=== PATIENT | female | born 1935 | race Caucasian/White ===

== ENCOUNTER → 2017-04-21 | Outpatient (CLI) | payer OTHER | LOC: BMCIMAGING 12:07 | PROVIDERS: ATTEND Internal Medicine | DX: Z12.31 Encounter for screening mammogram for malignant neoplasm of breast (principal); Z80.3 Family history of malignant neoplasm of breast | CPT/HCPCS: G0202 ==

== ENCOUNTER → 2017-04-21 | Outpatient (CLI) | payer OTHER | LOC: BMCIMAGING 12:18 | PROVIDERS: ATTEND Internal Medicine | DX: Z13.820 Encounter for screening for osteoporosis (principal); M85.80 Other specified disorders of bone density and structure, unspecified site ==

== ENCOUNTER → 2018-08-26 | Outpatient (CLI) | payer OTHER | LOC: BMCIMAGING 10:10 | PROVIDERS: ATTEND Internal Medicine | DX: N63.21 Unspecified lump in the left breast, upper outer quadrant (principal); R59.0 Localized enlarged lymph nodes ==

== ENCOUNTER → 2018-09-20 | Outpatient (CLI) | payer OTHER ==
[~2018-09-20] MED LIST: BUPIVACAINE 0.5% 30 ML SDV ONE; LIDOCAINE 1% 300 MG/30 ML SDV ONE
== END ==
LOC: FIMAGING 07:37
PROVIDERS: ATTEND Internal Medicine
PROC: 0HBU3ZX Excision of Left Breast, Percutaneous Approach, Diagnostic (ICD-10-PCS; principal; 2018-09-20)
DX: N63.20 Unspecified lump in the left breast, unspecified quadrant (principal); Z80.3 Family history of malignant neoplasm of breast; D05.12 Intraductal carcinoma in situ of left breast

== ENCOUNTER → 2018-10-07 | Outpatient (CLI) | payer OTHER ==
[~2018-10-07] MED LIST changes: -BUPIVACAINE 0.5% 30 ML SDV ONE; +GADOBUTROL 10 ML VIAL IVP ONE; -LIDOCAINE 1% 300 MG/30 ML SDV ONE
== END ==
LOC: FIMAGING 08:42
PROVIDERS: ATTEND Surgery
DX: C50.412 Malignant neoplasm of upper-outer quadrant of left female breast (principal)
CPT/HCPCS: A9585; C8908; 82565-PO

== ENCOUNTER 2018-10-14 07:54 | Observation (INO) | payer OTHER ==
[2018-10-14] MEDS ORDERED: BUPIVACAINE/EPI 0.25% 30 ML SDV ONE (08:09)
[2018-10-14] MEDS ORDERED: BUPIVACAINE 0.25% 30 ML SDV ONE (08:09)
[2018-10-14] MEDS ORDERED: ceFAZolin 2 GM/DEXTROSE 100 ML IV ONE (08:10)
[2018-10-14] MEDS ORDERED: LR 1,000 ML IV ONE (08:11)
[2018-10-14] MEDS ORDERED: LIDOCAINE 1% 2 ML INJ ID PRN (08:11)
--- NOTE | 2018-10-14 08:33 | PDANEPAE ---
ANE History of Present Illness 83 yo with breast ca ANE Past Medical History - Cardiovascular History Hx Hypertension: No Hx Arrhythmias: No Hx Chest Pain: No Hx Coronary Artery / Peripheral Vascular Disease: No Hx CHF / Valvular Disease: No Hx Palpitations: No - Pulmonary History Hx COPD: No Hx Asthma/Reactive Airway Disease: No Hx Recent Upper Respiratory Infection: Yes Hx Oxygen in Use at Home: No Hx Sleep Apnea: No Sleep Apnea Screening Result - Last Documented: Negative Pulmonary History Comment: 08/16/18 URI NO MEDICATIONS - Neurologic History Hx Cerebrovascular Accident: No Hx Seizures: No Hx Dementia: No - Endocrine History Hx Diabetes: No Endocrine History Comment: HYPOTHYROID - Renal History Hx Renal Disorders: No - Liver History Hx Hepatic Disorders: No - Neurological & Psychiatric Hx Hx Neurological and Psychiatric Disorders: No - Cancer History Hx Cancer: Yes Cancer History Comment: DISCOVERED LUMP 08/11/18 BREAST - Congenital Disorder History Hx Congenital Disorders: No - GI History Hx Gastrointestinal Disorders: No - Chronic Pain History Chronic Pain: No - Surgical History Prior Surgeries: DMITRIY CATARACT. D&C ANE Review of Systems Review of Systems: - Exercise capacity METS (RN): 4 METS ANE Patient History - Allergies Allergies/Adverse Reactions: guaifenesin Allergy (Verified 10/07/18 14:12) MEMORY LOSS - Home Medications Home Medications: Aspirin 81mg (*) DAILY 10/07/18 [Last Taken 10/07/18] Herbals/Supplements -Info Only DAILY 10/07/18 [Last Taken 10/07/18] Synthroid DAILY AT 6PM 10/07/18 [Last Taken 10/13/18 18:30] - Anes Hx Anes Hx: no prior problems - Smoking Hx Smoking Status: Never smoked ANE Labs/Vital Signs - Vital Signs Height: 165.1 cm Weight: 53.524 kg ANE Physical Exam - Airway Neck exam: FROM Mallampati Score: Class 1 Mouth exam: normal dental/mouth exam - Pulmonary Pulmonary: no respiratory distress - Cardiovascular Cardiovascular: regular rate and rhythym - ASA Status ASA Status: II ANE Anesthesia Plan Anesthesia Plan: GA w LMA
[2018-10-14] MEDS ORDERED: SCOPOLAMINE HYDROBROMIDE 1 MG/3 DAYS PATCH TD SCH (08:45)
[2018-10-14] MEDS ORDERED: PROPOFOL 200 MG/20 ML VIAL ONE ×2 (08:59→10:30)
[2018-10-14] MEDS ORDERED: fentaNYL 100 MCG/2 ML INJ ONE (08:59)
[2018-10-14] MEDS ORDERED: PROPOFOL/EMULSION 500 MG/50 ML BOTTLE IV ONE (08:59)
--- NOTE | 2018-10-14 09:07 | PDHPUP ---
History & Physical Update H&P update statement: This history and physical update is based on an assessment of the patient which was completed after admission or registration (within 24 hours), but prior to the surgery/procedure. H&P update: H&P reviewed & patient examined, no change in patient's condition since H&P completed
[2018-10-14] MEDS ORDERED: AVITENE POWDER 1 GM JAR TP ONE (10:00)
[2018-10-14] MEDS ORDERED: ONDANSETRON DISINTEGRATING 4 MG TAB PO PRN (10:52)
--- NOTE | 2018-10-14 10:52 | POSTOPPROG ---
Post Op Note Date of Operation: 10/14/18 Surgeon: Anthony Callaway (, FACS) Anesthesiologist: Rocky Moss MD Anesthesia: LMA Pre-op Diagnosis: left breast cancer Procedure: left partial mastectomy/ALND Inf/Abcess present in the surg proc area at time of surgery?: No EBL: 50-100 (50 ml) Bowel Protocol: N/A Clean Closure Performed: N/A Drains: Flex Holcomb Specimen(s): partial mastectomy left ALND additional thoraco-abdominal nodes highest axillary nodes
[2018-10-14] MEDS ORDERED: fentaNYL 100 MCG/2 ML INJ IVP PRN (11:01)
[2018-10-14] MEDS ORDERED: NALOXONE HCL 0.4 MG/ML INJ IVP PRN (11:01)
[2018-10-14] MEDS ORDERED: PROMETHAZINE HCL 25 MG/ML INJ IVP PRN (11:01)
[2018-10-14] MEDS ORDERED: ONDANSETRON 4 MG/2 ML VIAL IVP PRN (11:01)
[2018-10-14] MEDS ORDERED: DEXAMETHASONE 4 MG/ML VIAL IVP PRN (11:01)
--- NOTE | 2018-10-14 11:02 | POSTANESTH ---
Post Anesthetic Evaluation Cardiovascular Status: Normal, Stable Respiratory Status: Normal, Stable, Requires Airway Assist Pain Control: Adequate, Prn Tx Ordered Nausea/Vomiting Control: Adequate, Prn Tx Ordered Complications Possibly Related to Anesthesia: None Noted
[2018-10-14] MEDS ORDERED: ACETAMINOPHEN 325 MG TAB ONE (11:13)
[2018-10-14] MEDS: ACETAMINOPHEN 325 MG TAB PO PRN ×2 (11:13→17:04)
[2018-10-14] MEDS ORDERED: traMADol 50 MG TAB ONE (12:23)
[2018-10-14] MEDS: traMADol 50 MG TAB PO PRN ×2 (12:26→20:11)
[2018-10-15 07:30] VITALS: BP 90/56
[2018-10-15] MEDS ORDERED: ASPIRIN 81 MG CHEWABLE TAB PO SCH (09:00)
--- NOTE | 2018-10-15 09:56 | PDDCSUM ---
Discharge Summary Discharge Summary: #[id number] Barb Callaway MD, FACS
--- NOTE | 2018-10-15 10:31 | GDS ---
[f rep st] DISCHARGE SUMMARY DISCHARGE DIAGNOSIS: Left breast carcinoma, clinical stage T2 N2. PROCEDURE PERFORMED: 10/14/2018, left partial mastectomy and axillary lymph node dissection. HOSPITAL COURSE: For details of admission history and physical, please see dictated summary. Briefl y, the patient is an 83-year-old female with a locally advanced breast cancer, admitted for breast co nservation therapy and axillary lymph node dissection. This was performed on the day of admission un murtaza general anesthesia. She had an uneventful postoperative course with very little pain. She took 2 tramadol tablets following surgery. The day after surgery, she reported no pain. Her incisions we re healing well without sign of infection. Her Flex-Holcomb drainage was starting to clear. She wi ll be instructed in drain care and follow up in my office in the upcoming week for a postoperative ch ariella. Final pathology report is pending. She has followup appointments with Dr. Prashant Hernandez to dis cuss adjuvant treatment next week. DISCHARGE MEDICATIONS: Include levothyroxine 50 mcg p.o. daily, aspirin 81 mg p.o. daily, tramadol 5 0 mg q.4 hours p.r.n. pain, Ambien 5 mg q.h.s. p.r.n. insomnia, omega-3 fatty acids, glucosamine mala droitin sulfate, vitamin D3 1000 units per day. DISCHARGE CONDITION: Condition at time of discharge, satisfactory. /[id number]/MODL
--- NOTE | 2018-10-15 10:33 | ASDISCHSUM ---
Discharge Information Plan Status:Home with No Needs Medically Cleared to Leave:10/15/2018 Discharge Date:10/15/2018 CM D/C Disposition:Home, Routine, Self-Care ADT D/C Disposition: Projected Discharge Date:10/15/2018 Transportation at D/C:Family Discharge Delay Reason: Follow-Up Date:10/15/2018 Discharge Slot: Final Diagnosis: Placement Information Patient Contact Information Contact Name:YOLANDA Relationship: Address:[address] Work Phone: City:[facility] Phone: State/Zip Code:[place] [address] Email: Financial Information Financial Class:Medicare Advantage Plans Primary Plan Desc:[employer] MEDICARE ADV Primary Plan Number:[id number] Secondary Plan Desc: Secondary Plan Number: Assessment Information LACE LACE Length of stay for Answers: Less than 1 day current admission Acuity / Level of Answers: No Care: Did the patient have an inpatient admission? Comorbidities - select Answers: Any tumor (including all that apply lymphoma or leukemia) Other Notes: Hypothyroid # of Emergency department Answers: 0 visits in the last 6 months Score: 3 Date Signed: 10/15/2018 10:30 AM Electronically Signed By:CRISTOBAL Ott Case Management Discharge Plan Note Case Management Discharge Discharge Order Complete? Answers: Yes Patient to Obtain Answers: via Family Medications Transportation Arranged Answers: Family/Friends Discharge Comments Notes: Pt is s/p a planned L breast partial mastectomy and bx. She is discharging home today with her and no CM needs. Date Signed: 10/15/2018 10:32 AM Electronically Signed By:CRISTOBAL Ott Intervention Information
--- NOTE | 2018-10-15 12:26 | GOP ---
[f rep st] OPERATIVE REPORT DATE OF OPERATION: 10/14/2018 SURGEON: Anthony Callaway MD, FACS ANESTHESIA: General by laryngeal mask. ANESTHESIOLOGIST: Edwin Moss MD PREOPERATIVE DIAGNOSIS: Left breast carcinoma. POSTOPERATIVE DIAGNOSIS: Left breast carcinoma. PROCEDURE PERFORMED: Left partial mastectomy with axillary lymph node dissection. FINDINGS: Large tumor in the axillary tail of the breast, excised with overlying subcutaneous fat and underlying pectoralis muscle, submitted for permanent section after orientation with margin marker ink, separately designating the superior, inferior, medial, lateral, anterior, and posterior margins. The axillary contents (level 1) with additional thoracodorsal and highest axillary nodes submitted for permanent section. ESTIMATED BLOOD LOSS: 50 mL. DESCRIPTION OF PROCEDURE: After informed consent was obtained, the patient was brought to the operating room and placed under general anesthesia. The left breast was prepped and draped in usual fashion. Before proceeding, a time-out and identification of the patient was performed. Patient had a palpable mass in the axillary tail, as well as palpable axillary nodes. The lumpectomy was performed first as follows. An intercostal block was performed injecting 5 cc of 0.25% Marcaine into the 4th , 5th, 6th, and 7th intercostal spaces just below the rib and deep to the intercostal muscle. Following this, a curvilinear incision was made over the palpable tumor in the upper outer quadrant. Dissection was carried out through skin and subcutaneous tissues. The tumor was excised widely using primarily cautery dissection. Hemostasis was secured with hemoclips, cautery, and 3-0 Vicryl suture ligature. A portion of the pectoralis muscle was excised along with the tumor 2-3 mm in depth, though it was freely mobile by palpation. Specimen was removed from the field and immediately tagged for orientation with a margin-marker kit, and submitted for permanent section. Hemostasis was secured within the cavity. 3 g of Avitene was placed into the cavity. Subcutaneous tissues were closed with 4-0 Monocryl suture. Skin was closed with 4-0 Monocryl suture in a subcuticular fashion. The axillary dissection was performed through a curvilinear incision made at the base of the axilla. Dissection was carried through the skin and subcutaneous tissues and superficial axillary fascia. The axillary contents contained several suspicious nodes. The fibrofatty tissue below the axillary vein was swept inferiorly. Lymphovascular structures were hemo-clipped for hemostasis and lymphostasis. The base of the axilla was dissected down to the tail of the breast and was then amputated and removed from the field. This was submitted for permanent section. Palpation of the axilla revealed 2 additional nodes that felt somewhat firm. One of them was posterior to the thoracodorsal neurovascular bundle and this was separately excised and submitted for permanent section. The other was high in the axilla just lateral to the pectoralis minor border. Both of these were excised and submitted separately for permanent section and labeled as thoracodorsal and highest axillary lymph nodes, respectively. Hemostasis was secured within the cavity. A 10 mm flat Flex-Holcomb drain was brought through a separate stab wound, secured to the skin with 3-0 nylon suture. Subcutaneous tissues were approximated with 3-0 Monocryl suture and the skin was closed with 4-0 Monocryl suture in subcuticular fashion. Needle, sponge, and instrument counts were correct. COMPLICATIONS: None. /[id number]/MODL MTDD
[2018-10-17] MEDS ORDERED: PATCH REMOVAL 1 EA PATCH TD SCH (08:31)
== END 2018-10-15 12:20 | disposition home or self-care (01) ==
LOC: FSGY 07:54 → F1N 12:50
PROVIDERS: ADMIT Surgery; ATTEND Surgery
PROC: 0HBU0ZZ Excision of Left Breast, Open Approach (ICD-10-PCS; principal; 2018-10-14 08:45)
PROC: 07B60ZX Excision of Left Axillary Lymphatic, Open Approach, Diagnostic (ICD-10-PCS; principal; 2018-10-14 08:45)
DX: C50.612 Malignant neoplasm of axillary tail of left female breast (principal); E03.9 Hypothyroidism, unspecified
CPT/HCPCS: 19302; G0378; J0690; J2704; J3010

== ENCOUNTER → 2018-12-29 | Outpatient (CLI) | payer OTHER | LOC: FIMAGING 13:58 ==